=== PATIENT | female | born 2000 | race Two or more races ===

== ENCOUNTER 2024-01-02 18:53 | Emergency (ER) | payer OTHER ==
[~2024-01-02] VITALS: Ht 160 cm; Wt 63.5 kg
[2024-01-02] MEDS ORDERED: KETOROLAC TROMETHAMINE 60 MG VIAL IM STA (21:36)
[2024-01-02] MEDS ORDERED: OxyCODONE HCL/APAP UD (PERCOCET) PO STA (21:36)
[2024-01-02] MEDS ORDERED: KETOROLAC TROMETHAMINE 60 MG VIAL IM ONE (21:42)
== END 2024-01-03 03:18 | disposition home or self-care (01) ==
LOC: ER 18:54
DX: S93.402A Sprain of unspecified ligament of left ankle, initial encounter (principal); X58.XXXA Exposure to other specified factors, initial encounter; Y93.89 Activity, other specified; Y92.89 Other specified places as the place of occurrence of the external cause; Y99.9 Unspecified external cause status